=== PATIENT | male | born 2000 ===

== ENCOUNTER 2024-11-19 16:32 | Emergency (ER) | payer OTHER ==
[2024-11-19] MEDS: Ondansetron 4 MG/2 ML SDV IVPUSH ONE (16:57)
[2024-11-19] MEDS: Sodium Chloride 0.9% 1,000 ML IV ONE (16:58)
[2024-11-19] MEDS: Take Home: Ondansetron 4 MG Tab.DIS, 5 Tab Pack PO ONE (17:03)
== END 2024-11-19 17:22 | disposition home or self-care (01) ==
LOC: DL.ED 16:32
DX: R11.2 Nausea with vomiting, unspecified (principal); Z91.018 Allergy to other foods
CPT/HCPCS: 96374; 99282; 99283; J2405; J7030; Q0162